=== PATIENT | male | born 1990 | race Caucasian/White ===

== ENCOUNTER 2022-03-02 14:01 | Emergency (ER) | payer OTHER, SELFPAY ==
--- NOTE | ~2022-03-02 | XR_ITS ---
EXAMINATION: XR KNEE, RIGHT CLINICAL INFORMATION: Fall. COMPARISON: None TECHNIQUE: Four views of the right knee. XR/XR knee RT 4V FINDINGS/IMPRESSION: No acute fracture or dislocation. Previous ACL repair. Small tricompartmental marginal osteophytes. Trace knee joint effusion.
[2022-03-02 14:11] VITALS: BP 128/77; PULSE 76; RESP 18; TEMP 36.7; O2SAT 97; BMI 26.4
--- NOTE | 2022-03-02 14:31 | PC.NURSE ---
pt ambulatory, to room, states that he missed a step at work a few days ago and has been experiencing pain with bearing weight. Stated he has a surgical history of ACL and meniscus repair. No apparent distress, resting quietly in recliner
--- NOTE | 2022-03-02 15:16 | ED_ITS ---
HPI - Extremity Problem General Chief complaint: Extremity Problem Stated complaint: R knee pain-work inj Time Seen by Provider: 03/02/22 15:16 Source: patient Mode of arrival: ambulatory History of Present Illness HPI Narrative: 32-year-old male with a past medical history of ACL tear, meniscal tear, presenting to the ED complaining of right knee pain s/p twisting injury after slipping down 1 stair 1 week ago at work. Denies fall, direct injury/trauma, numbness, tingling, weakness. Reports pain worse with specific movements/bending. MD Complaint: extremity pain and joint swelling Onset (ago): week(s) Related Data Allergies Allergy/AdvReac Type Severity Reaction Status Date / Time No Known Allergies Allergy Unverified 07/27/20 17:10 [No Known Allergies*] Review of Systems Review of Systems: Constitutional: No Fever, No Chills ENT/Mouth: No Ear Pain, No Nasal Congestion, No sore throat, No Rhinorrhea, No Swallowing Difficulty Cardiovascular: No Chest Pain, No SOB Respiratory: No Cough, No Sputum, No Wheezing Gastrointestinal: No Nausea, No Vomiting, No Diarrhea, No Constipation, No Abdominal pain Genitourinary:, No Dysuria, No, No Urgency, No Flank Pain Musculoskeletal: + joint pain, No Myalgias, + Joint Swelling Skin: No Skin Lesions, No rash Neuro: No Weakness, No Numbness, No Paresthesias Yes all other systems are reviewed and are negative [facility] Past Medical History Attestation statement: The following information was validated with the patient. Medical History ACL tear No known health problems Tear of meniscus of knee Social History Social History Advance Directives: No Advance Directives Information Provided: No Physical Exam Vital Signs: Vital Signs: Last Vital Signs Temp 98.1 F 03/02/22 14:11 Pulse 76 03/02/22 14:11 Resp 18 03/02/22 14:11 BP 128/77 03/02/22 14:11 Pulse Ox 97 03/02/22 14:11 BMI result Body Mass Index 26.4 Const: General: cooperative, healthy appearing and no acute distress Orientation/consciousness: patient oriented x3 Limitations: no limitations HEENT: Head: Yes normal to inspection and Yes atraumatic Ears: hearing grossly normal bilaterally General nose exam: Normal external nose present Face and sinus: Yes normal facial exam Eyes: General: appearance normal, both eyes and all related structures EOM: EOMs intact bilaterally Neck: Neck: Yes normal visual inspection and Yes no meningeal signs Resp: Effort & Inspection: normal respiratory effort and no respiratory distress Cardio: Rate: regular rate Peripheral pulses: dorsalis pedis present : General: Yes no CVA tenderness Back/Spine/Pelvis: Back: no CVA tenderness Skin: Rashes: no rashes Wounds: no wounds Neuro: General: patient oriented x3, tone normal and no meningeal signs Gait exam (Neuro): Normal gait present Extrem: Other: Right knee with mild swelling, tenderness to palpation to medial aspect. Full range of motion intact. Neurovascular intact distally. No ecchymosis/erythema or warmth Course Course Course Narrative: XR knee RT 4V FINDINGS/IMPRESSION: No acute fracture or dislocation. Previous ACL repair. Small tricompartmental marginal osteophytes. Trace knee joint effusion.? >> SARMAD wrap applied for comfort and stability, patient referred to Ortho ? Discharge Plan Discharge Clinical Impression: Effusion of knee joint right Patient Disposition: Home, Self-Care Instructions: Swollen Knee Joint (ED) Additional Instructions: Your x-ray shows a small joint effusion meaning fluid in her joint as well as some small osteophytes. Due to her injury likely need an MRI/further evaluation by specialist. Were Saramd wrap/brace at home for comfort and stability. Ice. Elevate. Take Tylenol Motrin for pain swelling Referrals: Shy Dukes PA-C [Physician [employer]] - 1 week Stand Alone Forms: Work/School Release
== END 2022-03-02 15:45 | disposition home or self-care (01) ==
PROVIDERS: Emergency Provider Emergency Medicine; PCP Physician Assistant
DX: M25.461 Effusion, right knee (principal)
CPT/HCPCS: 73564; 99283

== ENCOUNTER 2023-07-28 12:34 | Outpatient (REF) | payer SELFPAY ==
--- NOTE | ~2023-07-28 | MR_ITS ---
Examination: MR outside images Indication: OUTSIDE MRI - WHOLE BODY. No indication given otherwise. Comparison: Prior plain films from 2014 - 2021 but no cross-sectional imaging Technique: Whole body MRI was obtained on a 3 Marlene MRI without intravenous contrast. Varying T1, T2, and diffusion weighted sequences were performed. Findings: Brain: Ventricles and sulcal spaces are symmetric in size and symmetry. There is grossly normal momin-white matter differentiation on these images. No mass effect or obstructive change. No abnormal focal restricted diffusion. Head: Minimal mucosal sinus disease seen. Minimal septal deviation and spurring to the left. Visualized orbits and retro-orbital soft tissues grossly unremarkable. There are scattered shotty oval-shaped lymph nodes bilaterally in the cervical chain and along the posterior occipital soft tissues but no discrete bulky adenopathy. I do not appreciate any bony destructive lesions. Cervical spine: Bones are normal anatomic alignment with no acute fracture or spondylolisthesis. I do not appreciate any abnormal signal within the cord or the vertebral bodies. Vertebral body heights and disc heights are preserved. No central obstructing lesions. No suspicious thyroid mass. Thoracic spine: Bones are normal anatomic alignment with no acute fracture or spondylolisthesis. Vertebral body heights and disc heights are preserved. Normal bone marrow signal and disc signal. Normal signal to the cord with no obstructing lesion. Paravertebral soft tissues grossly unremarkable. Lumbosacral spine: Bones are normal anatomic alignment. Vertebral body heights are preserved. Degenerative changes are seen at the L4/L5 and L5/S1 disc spaces with mild endplate edema abutting L4/L5 and to a lesser extent L5/S1. Minimal broad based disc bulges centrally at L4/L5 and L5/S1 but no evidence for central or foraminal encroachment. Paravertebral soft tissues unremarkable. Chest/shoulders: I do not appreciate any dense consolidation or airspace disease. No bulky hilar or mediastinal adenopathy. There are prominent bilateral axillary nodes seen measuring up to 1.6 cm axial short axis diameter on the left however these have very thin cortices and prominent amount of hilar fat likely reactive in nature. No bulky or suspicious adenopathy in the axilla. Mild degenerative changes in the left greater than right acromioclavicular joint spaces. No abnormal bone marrow signal appreciated otherwise. Abdomen: No visceral abnormality. Spleen is homogeneous and normal in size. No focal abnormalities within the visualized portion of the liver, gallbladder, spleen, or kidneys. The adrenals and pancreas are less well delineated due to motion artifact but where they are seen they are also grossly unremarkable. I do not appreciate any bulky retroperitoneal or mesenteric adenopathy. Pelvis: Bladder is partially decompressed and unremarkable. No gross abnormality within the prostate or seminal vesicles. Visualized bowel is unremarkable with normal-appearing appendix in the right lower quadrant. There is symmetric homogeneous muscle signal. No additional bone marrow signal abnormality. Lower extremities: Normal bone marrow signal. I do not appreciate any suspicious underlying bony lesions. Shotty bilaterally symmetric inguinal lymph nodes but no bulky adenopathy. No significant hip joint effusions. Small knee joint effusions more likely physiologic in nature. No abnormal bone marrow signal or soft tissue abnormality extending to the ankles. MR/MR outside images Impression: 1. I do not appreciate any acute abnormality on this MRI of the brain, cervical spine, or thoracic spine. Degenerative changes in the lower lumbar spine with mild endplate edema at L4/L5 and to a lesser extent L5/S1. 2. Mild degenerative changes in the left greater than right acromioclavicular joints. I do not appreciate any suspicious underlying bony lesions. 3. There are prominent bilateral axillary nodes seen measuring up to 1.6 cm axial short axis diameter on the left however these have very thin cortices and prominent amount of hilar fat likely reactive in nature. No bulky or suspicious adenopathy appreciated. There are scattered shotty lymph nodes seen within the neck and inguinal regions but no bulky adenopathy. 4. No visceral organ abnormality appreciated.
== END 2023-07-28 12:35 | disposition home or self-care (01) ==
LOC: HO.MRI 12:34
DX: Z13.89 Encounter for screening for other disorder (principal)